=== PATIENT | female | born 1990 | race Hispanic/Latino ===

== ENCOUNTER 2023-04-23 10:32 | Emergency (ER) | payer BC ==
[~2023-04-23] VITALS: Ht 157.5 cm; Wt 158.3 kg
[2023-04-23 10:43] VITALS: O2SAT 100
[2023-04-23] MEDS ORDERED: ONDANSETRON ODT4 MG PO (10:56)
[2023-04-23] MEDS ORDERED: ONDANSETRON HCL 4 MG ORAL DISINTEGRATING TAB PO ONE (11:00)
== END 2023-04-23 11:20 | disposition home or self-care (01) ==
LOC: ER 10:41
DX: R50.9 Fever, unspecified (principal); R11.0 Nausea; R51.9 Headache, unspecified; I10 Essential (primary) hypertension
CPT/HCPCS: 99283; Q0162